=== PATIENT | male | born 1960 | race Caucasian/White ===

== ENCOUNTER 2016-11-26 18:49 | Emergency (ER) | payer BC ==
[~2016-11-26] VITALS: Ht 170.2 cm; Wt 113.4 kg
== END 2016-11-26 21:18 | disposition home or self-care (01) ==
LOC: CED 18:49 → CFTX 18:49
DX: M54.42 Lumbago with sciatica, left side (principal); I10 Essential (primary) hypertension; Z90.49 Acquired absence of other specified parts of digestive tract; Z98.890 Other specified postprocedural states
CPT/HCPCS: 99283

== ENCOUNTER 2016-12-28 13:19 | Emergency (ER) | payer BC ==
[~2016-12-28] VITALS: Ht 170.2 cm; Wt 113.4 kg
--- NOTE | ~2016-12-28 | CR181 ---
[facility] A Service of [facility] RADIOLOGY TEXT RESULTS PATIENT: SANDRA CASTREJON LOCATION: CFTX : 60 UNIT #: [id number] AGE: [address]: Vida Spangler APRN SEX: M ORDER DR: [id number] [facility] [place], [place] [address] [id number] MR#: [id number] Acc #: [id number] NAME: SANDRA CASTREJON : 1960 SEX: M STUDY DATE/TIME: 12/28/2016 14:33 UNIT: [facility] ROOM: STUDY DESCRIPTION: CR Lumbar Spine 2 or 3 Views Attending Physician: Vida Spangler A.P.R.N. Referring Physician: Fei Callaway M.D. Ordering Physician: Jhonatan Aranda M.D. Primary Care Physician: No Primary Care Physician MEDICAL IMAGING REPORT This report is preliminary unless electronic signature is present EXAM Lumbar spine, 3 views. COMPARISON None. INDICATIONS 56-year-old male with severe low back pain radiating to the left leg since this morning. FINDINGS There is apparent right lateral bridging syndesmophyte at L3-L4 with smaller syndesmophytes seen bilaterally at other levels of the lumbar spine. These are findings which can be seen in ankylosing spondylitis or inflammatory bowel disease. Questionable disc height loss at L3-L4. Question bony neural foraminal narrowing only seen on lateral view at L3-4 and L4-L5, possibly due to degenerative facet disease. No evidence of fracture or subluxation of the lumbar spine. IMPRESSION 1. Apparent degenerative disc height loss at L3-L4 with apparent bony neural foraminal narrowing at L3-L4 and L4-L5 due to facet hypertrophy. This is only seen on the lateral view and the side cannot be localized. 2. Diffuse syndesmophytes of the lumbar spine, which are findings which can be seen in ankylosing spondylitis or inflammatory bowel disease. Clinical correlation recommended. Dictated by... Jacky Stewart M.D. [facility] A Service of [facility] RADIOLOGY TEXT RESULTS PATIENT: SANDRA CASTREJON LOCATION: [facility] : 60 UNIT #: [id number] AGE: [address]: Vida Spangler APRN SEX: M ORDER DR: THIS IS AN ELECTRONICALLY VERIFIED REPORT Jacky Stewart M.D. at 12/30/2016 10:16 PM Rayshawn TD: 12/28/2016 19:28 JOB #: [id number] MEDICAL IMAGING REPORT Page 1 of 1 COPY
== END 2016-12-28 15:57 | disposition home or self-care (01) ==
LOC: CED 13:19 → CFTX 13:19
DX: M54.5 Low back pain (principal); I10 Essential (primary) hypertension; E78.00 Pure hypercholesterolemia, unspecified; Z90.89 Acquired absence of other organs
CPT/HCPCS: 72100; 96372; 99283; J1885; J2270